=== PATIENT | female | born 1935 | race Caucasian/White ===

== ENCOUNTER 2016-09-10 10:27 | Emergency (ER) | payer MEDICARE, OTHER ==
[~2016-09-10] VITALS: Ht 167.6 cm; Wt 68.0 kg
[~2016-09-10 10:27] MED LIST: AMLO5TAB22 PO; AMOX875T20 PO; ASPI325T PO; CITA20TA4 PO; GLUCTAB PO; HYZA100T6 PO; SYNT100T PO
[2016-09-10 10:32] VITALS: BP 103/55; PULSE 92; RESP 20; TEMP 98.3; O2SAT 95
[2016-09-10 11:04] VITALS: BP 101/51; PULSE 93; RESP 18; O2SAT 92
[2016-09-10 11:20] VITALS: BP_SYST 95; BP_SYST 98; BP_DIAS 52; BP_DIAS 54; RESP 18
[2016-09-10 11:30] LABS: HEMATOCRIT 38.8 % (35.0-46.0); MEAN CELL VOLUME 90.7 FL (80.0-100.0); MEAN CORPUSCULAR HEMOGLOBIN 30.8 PG (27.0-34.0); MEAN CORPUSCULAR HGB CONC 33.9 % (32.0-36.0); PLATELET COUNT 266 TH/MM3 (150-450); RED BLOOD COUNT 4.27 MIL/MM3 (4.00-5.30); RED CELL DISTRIBUTION WIDTH 14.2 % (11.6-17.2); REVIEW FLAG FINAL; WHITE BLOOD COUNT 9.7 TH/MM3 (4.0-11.0)
[2016-09-10] MEDS ORDERED: ASPI325T PO (11:40)
[2016-09-10] MEDS ORDERED: CITA20TA4 PO (11:40)
[2016-09-10] MEDS ORDERED: LEVO.1 PO (11:40)
[2016-09-10] MEDS ORDERED: AMLO5TAB2 PO (11:40)
[2016-09-10] MEDS ORDERED: HYZA100T6 PO (11:42)
[2016-09-10] MEDS ORDERED: METF500T4 PO (11:42)
[2016-09-10] MEDS ORDERED: MULT-135 PO (11:42)
[2016-09-10 11:45] LABS: BICARBONATE 28.2 MEQ/L (21.0-32.0)
[2016-09-10] MEDS ORDERED: SODIUM CHLOR 0.9% 1000 ML INJ 1,000 ML IV ONE (11:45)
[2016-09-10 11:46] LABS: POTASSIUM 4.3 MEQ/L (3.5-5.1)
[2016-09-10 11:50] LABS: BACTERIA, URINE OCC /hpf; BLOOD, URINE NEG (NEG); COMMENT (UR) CULT NOT INDICATED; CULTURE IF INDICATED CULT NOT INDICATED; GLUCOSE,URINE NEG (NEG); GRANULAR CAST, URINE 8 /lpf; HYALINE CAST, URINE 41 /lpf (RARE); KETONE, URINE NEG (NEG); MUCUS URINE FEW /lpf (OCC); NITRITE,URINE NEG (NEG); PH, URINE 5.5 (5.0-8.5); SQUAMOUS EPITHELIAL CELL URINE 3 /hpf (0-5); URINE COLOR YELLOW (YELLW/STRAW)
--- NOTE | 2016-09-10 11:51 | PD ---
HPI Chief Complaint: Syncope/Near-Syncope Time Seen by Provider: 11:33 Travel History International Travel<30 days: No Contact w/Intl Traveler<30days: No Traveled to known affect area: No History of Present Illness HPI 81-year-old female complaining of lightheadedness this morning. Patient states that she has intermittent diarrhea since this morning. Patient went to exercise and was doing some lifting exercise. Patient started having intermittent diarrhea again and feeling dizzy and lightheadedness. Patient denies any headache. Patient denies any visual change. Patient denies any chest pain or shortness of breath. Patient denies abdominal pain. Patient states that she has mild intermittent nausea but no vomiting. Patient denies any dysuria or frequency. Patient denies any fever chills. Patient feeling much better now. Patient states that she feeling thirsty. PFSH Past Medical History Chemotherapy: Yes (age 51) Diabetes: Yes (type 2 metformin 09/10/16 0800) Patient Takes Glucophage: Yes Diminished Hearing: No Hypertension: Yes Influenza Vaccination: No Tubal Ligation: Yes Past Surgical History Tonsillectomy: Yes Social History Alcohol Use: No Tobacco Use: No Substance Use: No Allergies-Medications (Allergen,Severity, Reaction): Coded Allergies: No Known Allergies (Verified , 09/10/16) Reported Meds & Prescriptions Reported Meds & Active Scripts Active Reported Metformin ER (Metformin HCl) 500 Mg Beltran 500 Mg PO BID With evening meal Multi Vitamin (Multiple Vitamin) 1 Tab Tab 1 Tab PO AC LUNCH Hyzaar (Losartan-Hydrochlorothiazide) 100-25 Mg Tab 1 Tab PO DAILY Synthroid (Levothyroxine Sodium) 100 Mcg Tab 100 Mcg PO DAILY Citalopram (Citalopram Hydrobromide) 20 Mg Tab 20 Mg PO DAILY Aspirin 325 Mg Tab 325 Mg PO HS Amlodipine (Amlodipine Besylate) 5 Mg Tab 5 Mg PO DAILY Review of Systems General / Constitutional: No: Fever Eyes: No: Visual changes HENT: Positive: Lightheadedness, No: Headaches Cardiovascular: No: Chest Pain or Discomfort Respiratory: No: Shortness of Breath Gastrointestinal: No: Abdominal Pain Genitourinary: No: Dysuria Musculoskeletal: No: Pain Skin: No Rash Neurologic: No: Weakness Psychiatric: No: Depression Endocrine: No: Polydipsia Hematologic/Lymphatic: No: Easy Bruising Physical Exam Narrative GENERAL: Well-nourished, well-developed patient. SKIN: Warm and dry. HEAD: Normocephalic. EYES: No scleral icterus. No injection or drainage. NECK: Supple, trachea midline. No JVD or lymphadenopathy. CARDIOVASCULAR: Regular rate and rhythm without murmurs, gallops, or rubs. RESPIRATORY: Breath sounds equal bilaterally. No accessory muscle use. GASTROINTESTINAL: Abdomen soft, non-tender, nondistended. MUSCULOSKELETAL: No cyanosis, or edema. BACK: Nontender without obvious deformity. No CVA tenderness. Neurologic exam normal. Data Data Last Documented VS Vital Signs Date Time Temp Pulse Resp B/P Pulse Ox O2 Delivery O2 Flow Rate FiO2 09/10/16 12:14 82 18 106/52 95 Room Air 09/10/16 10:32 98.3 Orders Cbc No Diff, Includes Plts (09/10/16 11:00) Basic Metabolic Panel (Bmp) (09/10/16 11:00) Electrocardiogram (09/10/16 ) Urinalysis - C+S If Indicated (09/10/16 11:05) Sodium Chlor 0.9% 1000 Ml Inj (Ns 1000 M (09/10/16 11:45) Diphenoxylate/Atropine Tab (Lomotil Tab) (09/10/16 12:00) Labs Laboratory Tests Test 09/10/16 09/10/16 11:05 11:26 White Blood Count 9.7 TH/MM3 Red Blood Count 4.27 MIL/MM3 Hemoglobin 13.1 GM/DL Hematocrit 38.8 % Mean Corpuscular Volume 90.7 FL Mean Corpuscular Hemoglobin 30.8 PG Mean Corpuscular Hemoglobin 33.9 % Concent Red Cell Distribution Width 14.2 % Platelet Count 266 TH/MM3 Mean Platelet Volume 8.4 FL Sodium Level 138 MEQ/L Potassium Level 4.3 MEQ/L Chloride Level 101 MEQ/L Carbon Dioxide Level 28.2 MEQ/L Anion Gap 9 MEQ/L Blood Urea Nitrogen 30 MG/DL Creatinine 1.46 MG/DL Estimat Glomerular Filtration 34 ML/MIN Rate Random Glucose 125 MG/DL Calcium Level 8.8 MG/DL Urine Color YELLOW Urine Turbidity HAZY Urine pH 5.5 Urine Specific [place] 1.021 Urine Protein TRACE mg/dL Urine Glucose (UA) NEG mg/dL Urine Ketones NEG mg/dL Urine Occult Blood NEG Urine Nitrite NEG Urine Bilirubin NEG Urine Urobilinogen 2.0 MG/DL Urine Leukocyte Esterase SMALL Urine RBC 2 /hpf Urine WBC 3 /hpf Urine Squamous Epithelial 3 /hpf Cells Urine Bacteria OCC /hpf Urine Hyaline Casts 41 /lpf Urine Granular Casts 8 /lpf Urine Mucus FEW /lpf Microscopic Urinalysis Comment CULT NOT INDICATED MDM Medical Decision Making Medical Screen Exam Complete: Yes Emergency Medical Condition: Yes Interpretation(s) CBC within normal limit. BUN 30. Creatinine 1.46. UA negative. Differential Diagnosis Differential diagnosis including vasovagal reaction, dehydration, electrolyte imbalance, TIA, CVA. Narrative Course 81-year-old female with transient dizziness lightheadedness after intermittent episodes of diarrhea. Normal saline solution 1 L IV bolus. Lomotil one tablet by mouth given. Diagnosis Primary Impression: Gastroenteritis Additional Impression: Renal insufficiency Patient Instructions: General Instructions Additional Instructions: Lomotil as needed. Follow-up with personal physician. Return if worse. Encouraged by mouth fluid. Med/Other Pt SpecificInfo: Prescription(s) given Disposition: 01 DISCHARGE HOME Condition: Stable Sushil Harvey MD Sep 10, 2016 11:51
[2016-09-10] MEDS: DIPHENOXYLATE/ATROPINE 2.5 MG/0.025 MG TAB PO ONE ×2 (12:13→12:29)
[2016-09-10 12:14] VITALS: BP 106/52; PULSE 82; RESP 18; O2SAT 95
--- NOTE | 2016-09-11 14:27 | EKG ---
Date Performed: 09/10/2016 Time Performed: 11:32:25 PTAGE: 81 years EKG: Sinus rhythm WITH OCCASIONAL SUPRAVENTRICULAR PREMATURE COMPLEXES NONSPECIFIC T-WAVE ABNORMALITY ABNORMAL ECG NO PREVIOUS TRACING DOCTOR: Rachel Ledesma Interpretating Date/Time 09/11/2016 14:22:08
== END 2016-09-10 15:50 | disposition home or self-care (01) ==
LOC: NEPC 10:27
DX: K52.9 Noninfective gastroenteritis and colitis, unspecified (principal); N28.9 Disorder of kidney and ureter, unspecified; R19.7 Diarrhea, unspecified; R94.31 Abnormal electrocardiogram [ECG] [EKG]; E11.9 Type 2 diabetes mellitus without complications; I10 Essential (primary) hypertension
CPT/HCPCS: 80048; 81001; 85027; 93005; 96360; 99284; J7030